=== PATIENT | female | born 1935 | race Caucasian/White ===

== ENCOUNTER 2017-06-07 15:57 | Emergency (ER) | payer MEDICARE ==
--- NOTE | 2017-06-07 16:18 | UC ---
Ear Complaint HPI - HPI Summary HPI Summary: sent here by [facility] to have ear cleaned before testing for hearing aids- - History of Current Complaint Chief Complaint: UCEar Stated Complaint: EARS PLUGGED Time Seen by Provider: 06/07/17 16:14 Hx Obtained From: Patient ?: No Onset/Duration: Gradual Onset, Still Present Severity Initially: Moderate Severity Currently: Moderate Aggravating Factors: Nothing Associated Signs/Symptoms: Positive: Hearing Loss, Foreign Body Sensation - Allergies/Home Medications Allergies/Adverse Reactions: Allergies Allergy/AdvReac Type Severity Reaction Status Date / Time No Known Allergies Allergy Verified 06/07/17 16:19 PMH/Surg Hx/FS Hx/Imm Hx Previously Healthy: Yes - Surgical History Surgical History: Yes Surgery Procedure, Year, and Place: Bilateral Cataract Extractions; Left Knee Fracture, 1999, - Family History Known Family History: Positive: None - Social History Lives: Alone Alcohol Use: None Substance Use Type: None Smoking Status (MU): Never Smoked Tobacco - Immunization History Most Recent Influenza Vaccination: Not the Season Review of Systems Constitutional: Negative Skin: Negative Eyes: Negative ENT: Ear Ache - b/l cerumen impaction Respiratory: Negative Cardiovascular: Negative Gastrointestinal: Negative Genitourinary: Negative Motor: Negative Neurovascular: Negative Musculoskeletal: Negative Neurological: Negative Psychological: Negative All Other Systems Reviewed And Are Negative: Yes Physical Exam Triage Information Reviewed: Yes Appearance: Well-Appearing, No Pain Distress, Well-Nourished Vital Signs Reviewed: Yes Eye Exam: Normal Eyes: Positive: Conjunctiva Clear ENT Exam: Normal ENT: Positive: Normal ENT inspection, Hearing grossly normal, Pharynx normal, TMs normal - b/l cerumen impaction. Negative: Nasal congestion, Nasal drainage , Tonsillar swelling, Tonsillar exudate, Trismus, Muffled/hoarse voice Dental Exam: Normal Neck exam: Normal Neck: Positive: Supple, Nontender, No Lymphadenopathy Respiratory Exam: Normal Respiratory: Positive: Chest non-tender, Lungs clear, Normal breath sounds, No respiratory distress Cardiovascular Exam: Normal Cardiovascular: Positive: RRR, No Murmur, Pulses Normal, Brisk Capillary Refill Musculoskeletal Exam: Normal Musculoskeletal: Positive: Strength Intact, ROM Intact, No Edema Neurological Exam: Normal Neurological: Positive: Alert, Muscle Tone Normal Psychological Exam: Normal Skin Exam: Normal Re-Evaluation - Re-Evaluation First Eval Change: Improved - left ear tm visualized after irragation---right ear remains with unremoval cerumen with georgette removal with curette and irragation with water, water and peroxide and colace liquid---plan to use debrox for 3 days and retun on Saturday for irragation Ear Complaint Course/Dx - Course Course Of Treatment: debrox bid for 3 days return saturday for irrigation - Differential Dx/Diagnosis Differential Diagnosis/HQI/PQRI: Cerumen Impaction, Otitis Externa, Otitis Media , URI Provider Diagnoses: b/l cerumen impaction, left ear resolved Discharge - Discharge Plan Condition: Stable Disposition: HOME Prescriptions: Carbamide Peroxide 6.5% OTIC* [DEBROX 6.5% Otic*] 5 drop RIGHT EAR BID #1 bottle Patient Education Materials: Cerumen Impaction (ED), Hypertension (ED) Referrals: [facility] [Outside] - 1 Week Additional Instructions: return on Saturday for ear flushing
[2017-06-07] MEDS ORDERED: Docusate LIQ* 100 MG/10 ML UDC OTIC ONE (17:01)
[2017-06-07 19:16] VITALS: BP 132/82
== END 2017-06-07 19:17 | disposition home or self-care (01) ==
LOC: UCCORT 15:57
DX: H61.23 Impacted cerumen, bilateral (principal)
CPT/HCPCS: 69210; 99212; A9270-GY; G0463

== ENCOUNTER 2017-06-09 18:10 | Emergency (ER) | payer MEDICARE ==
--- NOTE | 2017-06-09 18:14 | UC ---
Ear Complaint HPI - HPI Summary HPI Summary: 81 YEAR OLD FEMALE PRESENTS FOR A FOLLOW UP OF RIGHT EAR WAX REMOVAL. - History of Current Complaint Stated Complaint: EAR COMPLAINT Time Seen by Provider: 06/09/17 18:14 Hx Obtained From: Patient ?: Yes Severity Initially: Moderate Severity Currently: Moderate Pain Scale Used: 0-10 Numeric - 1 Aggravating Factors: Nothing Alleviating Factors: Nothing - Allergies/Home Medications Allergies/Adverse Reactions: Allergies Allergy/AdvReac Type Severity Reaction Status Date / Time No Known Allergies Allergy Verified 06/09/17 18:25 Home Medications: Home Medications Aleve 220 Mg 1 tab PO ONCE PRN 06/09/17 [History Confirmed 06/09/17] PMH/Surg Hx/FS Hx/Imm Hx Previously Healthy: Yes - Surgical History Surgical History: Yes Surgery Procedure, Year, and Place: Bilateral Cataract Extractions; Left Knee Fracture, 1999, - Family History Known Family History: Positive: None - Social History Alcohol Use: None Substance Use Type: None Smoking Status (MU): Never Smoked Tobacco - Immunization History Most Recent Influenza Vaccination: Not the Season Review of Systems Constitutional: Negative Skin: Negative Eyes: Negative ENT: Other - RIGHT EAR CERUMEN Respiratory: Negative Cardiovascular: Negative Gastrointestinal: Negative Genitourinary: Negative Motor: Negative Neurovascular: Negative Musculoskeletal: Negative Neurological: Negative Psychological: Negative All Other Systems Reviewed And Are Negative: Yes Physical Exam Triage Information Reviewed: Yes Eye Exam: Normal ENT: Positive: Other: - RIGHT EAR CERUMEN Dental Exam: Normal Neck exam: Normal Neck: Positive: 1 Respiratory Exam: Normal Cardiovascular Exam: Normal Abdominal Exam: Normal Musculoskeletal Exam: Normal Neurological Exam: Normal Psychological Exam: Normal Skin Exam: Normal Ear Complaint Course/Dx - Differential Dx/Diagnosis Provider Diagnoses: RIGHT EAR CERUMEN Discharge - Discharge Plan Condition: Stable Disposition: HOME Prescriptions: Neomyc/Polym/HC 1% OTIC SUSP* [Cortisporin Otic Susp 1%*] 4 drop RIGHT EAR QID # 1 btl Patient Education Materials: Cerumen Impaction (ED) Referrals: No Primary Care Phys,NOPCP [Primary Care Provider] -
[2017-06-09 18:25] VITALS: BP 153/76
[2017-06-09] MEDS ORDERED: Docusate LIQ* 100 MG/10 ML UDC OTIC ONE ×2 (18:34→18:46)
[2017-06-09] MEDS ORDERED: Neomyc/Polym/HC 1% OTIC SUSP* **OTIC RIGHT EAR ONE (19:49)
[2017-06-09] MEDS ORDERED: Neomyc/Polym/HC 1% OTIC SUSP* **OTIC RIGHT EAR SCH (21:00)
== END 2017-06-09 20:30 | disposition home or self-care (01) ==
LOC: UCCORT 18:10
DX: H61.21 Impacted cerumen, right ear (principal)
CPT/HCPCS: 99213; A9270-GY; G0463